=== PATIENT | female | born 1975 | race Caucasian/White ===

== ENCOUNTER 2020-04-28 12:56 | Emergency (ER) | payer OTHER ==
[2020-04-28 13:27] LABS: BILIRUBIN,URINE NEGATIVE (NEGATIVE); CLARITY,URINE CLEAR (CLEAR); GLUCOSE, URINE (UA) NEGATIVE (NEGATIVE); KETONES,URINE (UA) NEGATIVE (NEGATIVE); LEUKOCYTE ESTERASE, URINE NEGATIVE (NEGATIVE); NITRITE,URINE NEGATIVE (NEGATIVE); OCCULT BLOOD,URINE NEGATIVE (NEGATIVE); PROTEIN,URINE NEGATIVE (NEGATIVE); UROBILINOGEN,URINE 0.2 (NORMAL) E.U./dL (NORMAL)
[2020-04-28 13:28] LABS: HCG UR QUAL NEGATIVE
[2020-04-28 13:31] LABS: BASOPHILS % (AUTO) 0.5 %; EOSINOPHILS # (AUTO) 0.1 10^3/uL (0.0-0.7); EOSINOPHILS % (AUTO) 1.4 %; HGB - HEMOGLOBIN 14.3 g/dL (12.0-16.0); LYMPHOCYTES # (AUTO) 0.6 10^3/uL (1.5-3.5); LYMPHOCYTES % (AUTO) 10.7 %; MEAN CORPUSCULAR HEMOGLOBIN 30.6 pg (27.0-31.0); MEAN CORPUSCULAR HGB CONC 34.5 g/dL (32.0-36.0); MEAN CORPUSCULAR VOLUME 88.5 fL (81.0-99.0); MEAN PLATELET VOLUME 9.3 fL (7.9-10.8); MONOCYTES # (AUTO) 0.5 10^3/uL (0.0-1.0); MONOCYTES % (AUTO) 8.5 %; NEUTROPHILS # (AUTO) 4.5 10^3/uL (1.5-6.6); NEUTROPHILS % (AUTO) 78.6 %; PLT - PLATELET COUNT 224 10^3/uL (130-450); RED BLOOD COUNT 4.68 10^6/uL (4.20-5.40); RED CELL DISTRIBUTION WIDTH 12.6 % (12.0-15.0); WHITE BLOOD COUNT 5.8 x10^3/uL (4.8-10.8)
--- NOTE | 2020-04-28 13:33 | ED Physician Documentation ---
PD HPI ABD PAIN - Stated complaint Stated Complaint: ABD PX - Chief complaint Chief Complaint: Abd Pain - History obtained from History obtained from: Patient - History of Present Illness Timing - onset: How many months ago (2 1/2 months of intermittent left upper to mid upper abd cramping pain. More consistent the past week and has had increased pain and now fever the past couple days. Loose stools. No melena.) Timing - details: Gradual onset, Still present (worse the past couple days), Waxing and waning Quality: Cramping, Aching, Pain Location: Epigastric, LUQ Radiation: Lower back Improved by: Laying still. No: Eating, BM Worsened by: Moving, Palpation. No: Eating, Breathing Associated symptoms: Nausea. No: Fever, Vomiting, Diarrhea, Constipation, Melena, Dysuria Similar symptoms before: Has not had sx before Review of Systems Constitutional: reports: Fever (yesterday) Nose: denies: Rhinorrhea / runny nose, Congestion Throat: denies: Sore throat Respiratory: denies: Cough GI: reports: Abdominal Pain, Nausea. denies: Abdominal Swelling, Vomiting, Constipation, Diarrhea, Bloody / black stool : denies: Dysuria, Frequency Skin: denies: Rash, Lesions Neurologic: denies: Generalized weakness, Focal weakness PD PAST MEDICAL HISTORY - Past Medical History Cardiovascular: None Respiratory: None Neuro: None Endocrine/Autoimmune: None GI: None - Present Medications Home Medications: Ambulatory Orders Medication Instructions Recorded Confirmed Cephalexin [Keflex] 500 mg PO TID #21 capsule 04/28/20 Hydrocodone/Acetaminophen [Wilson 1 each PO Q6H PRN #15 tablet 04/28/20 5-325 Tablet] Naproxen 375 mg PO TID #30 tablet 04/28/20 metroNIDAZOLE [Flagyl] 500 mg PO BID #14 tablet 04/28/20 - Allergies Allergies/Adverse Reactions: Allergies Allergy/AdvReac Type Severity Reaction Status Date / Time Sulfa (Sulfonamide AdvReac Rash Verified 04/28/20 13:05 Antibiotics) - Living Situation Living Situation: reports: With spouse/s.o. Living Arrangement: reports: At home - Social History Does the pt smoke?: No Does the pt drink ETOH?: No Does the pt have substance abuse?: No PD ED PE NORMAL - Vitals Vital signs reviewed: Yes - General General: Alert and oriented X 3, Well developed/nourished, Other (appears uncomfortable due to abd pain. ) - Neck Neck: Supple, no meningeal sign, No adenopathy - Cardiac Cardiac: RRR, No murmur - Respiratory Respiratory: Clear bilaterally - Abdomen Abdomen: Normal bowel sounds, Soft, Non distended, No organomegaly, Other (tender with some local guarding and percussion tender but no rebound in LUQ and mid upper abd but not epigastric per se. ) - Back Back: No CVA TTP - Derm Derm: Normal color, Warm and dry - Neuro Neuro: Alert and oriented X 3, No motor deficit, Normal speech Results - Vitals Vitals: Vital Signs - 24 hr 04/28/20 04/28/20 12:59 15:57 Temperature 36.7 C Heart Rate 77 68 Respiratory 17 16 Rate Blood Pressure 142/85 H 123/82 H O2 Saturation 100 98 Oxygen O2 Source Room air - Labs Labs: Laboratory Tests 04/28/20 04/28/20 04/28/20 13:14 13:28 13:28 WBC 5.8 RBC 4.68 Hgb 14.3 Hct 41.4 MCV 88.5 MCH 30.6 MCHC 34.5 RDW 12.6 Plt Count 224 MPV 9.3 Neut # (Auto) 4.5 Lymph # (Auto) 0.6 L Pope # (Auto) 0.5 Eos # (Auto) 0.1 Baso # (Auto) 0.0 Absolute Nucleated RBC 0.00 Nucleated RBC % 0.0 Sodium 134 L Potassium 3.7 Chloride 98 L Carbon Dioxide 26 Anion Gap 10.0 BUN 5 L Creatinine 0.6 Estimated GFR (MDRD) 108 Glucose 88 Calcium 9.1 Total Bilirubin 0.6 AST 19 ALT 19 Alkaline Phosphatase 38 L Total Protein 7.5 Albumin 4.4 Globulin 3.1 Albumin/Globulin Ratio 1.4 Lipase 32 Urine Color YELLOW Urine Clarity CLEAR Urine pH 7.0 Ur Specific [place] <=1.005 Urine Protein NEGATIVE Urine Glucose (UA) NEGATIVE Urine Ketones NEGATIVE Urine Occult Blood NEGATIVE Urine Nitrite NEGATIVE Urine Bilirubin NEGATIVE Urine Urobilinogen 0.2 (NORMAL) Ur Leukocyte Esterase NEGATIVE Ur Microscopic Review NOT INDICATED Urine Culture Comments NOT INDICATED Urine HCG, Qual NEGATIVE - Rads (name of study) abd CT Radiology: Prelim report reviewed (segment of transverse colitis. No abscess nor perforation. ), See rad report PD MEDICAL DECISION MAKING - ED course Complexity details: reviewed results, considered differential (segment of colitis transverse colon. Presume infectious given worse pain and fever. ), d/w patient Departure - Departure Disposition: 01 Home, Self Care Clinical Impression: Acute colitis Condition: Stable Record reviewed to determine appropriate education?: Yes Instructions: ED Diverticulitis Follow-Up: Shy Yang R.T. (Yonas), Manuela (R) [Primary Care Provider] - Prescriptions: metroNIDAZOLE [Flagyl] 500 mg PO BID #14 tablet Cephalexin [Keflex] 500 mg PO TID #21 capsule Naproxen 375 mg PO TID #30 tablet Hydrocodone/Acetaminophen [Wilson 5-325 Tablet] 1 each PO Q6H PRN #15 tablet PRN Reason: Pain Comments: Stay well-hydrated. Good fiber diet. Use anti-inflammatory naproxen twice daily for the next 7 to 10 days. Add antibiotics cephalexin and metronidazole as directed for the infectious component. Add probiotics to help minimize the other intestinal side effects of the antibiotics. Add Tylenol or hydrocodone if needed for pain. Add a mild stool softener if you get slightly constipated. Follow-up with your primary care if not improving well over the next several days and resolved within a week. Return if worsening. Your CT scan showed a segment of colitis in the transverse colon. They did not see a diverticulitis per se but most of the time this would start at a diverticula and would get treated similarly to that. Discharge Date/Time: 04/28/20 16:15
[2020-04-28 13:45] LABS: ALBUMIN 4.4 g/dL (3.2-5.5); ALBUMIN/GLOBULIN RATIO 1.4 (1.0-2.2); BILIRUBIN,TOTAL 0.6 mg/dL (0.2-1.0); CALCIUM 9.1 mg/dL (8.5-10.3); CREATININE 0.6 mg/dL (0.4-1.0); TOTAL PROTEIN 7.5 g/dL (6.7-8.2)
[2020-04-28] MEDS ORDERED: HYDROmorphone 1 MG/ML CARPUJECT IVP STA (14:03)
[2020-04-28] MEDS ORDERED: ONDANSETRON 4 MG/2 ML VIAL IVP STA (14:03)
[2020-04-28] MEDS ORDERED: KETOROLAC 30 MG/ML VIAL IVP STA (14:03)
[2020-04-28] MEDS ORDERED: SODIUM CHLORIDE 0.9% 1,000 ML IV STA (14:03)
[2020-04-28] MEDS ORDERED: IOVERSOL 320 100 ML VIAL IVP ONE ×2 (14:13→14:34)
--- NOTE | 2020-04-28 14:57 | CT Report ---
PROCEDURE: Abdomen/Pelvis W INDICATIONS: upper/left abd pain, worsening CONTRAST: IV CONTRAST: Optiray 320 ml: 100 PO CONTRAST: *NO PO CONTRAST TECHNIQUE: After the administration of oral and intravenous contrast, 5 mm thick sections acquired from the diap hragms to the symphysis. 5 mm thick coronal and sagittal reformats were acquired. For radiation dos e reduction, the following was used: automated exposure control, adjustment of mA and/or kV accordin g to patient size. COMPARISON: None. FINDINGS: Image quality: Excellent. ABDOMEN: Lung bases: Lung bases are clear. Heart size is normal. Solid organs: Evaluation of the liver demonstrates no focal hepatic lesions. Gallbladder appears wit hin normal limits without calcified gallstones. Biliary system is non dilated. Pancreas enhances no rmally without peripancreatic fat stranding or fluid collections. No adrenal nodules. The spleen is normal in size. Kidneys demonstrate no hydronephrosis. Peritoneum and bowel: There is mild gastric wall thickening in the antrum. Small bowel loops demonst rate normal wall thickness and caliber. The appendix is normal in appearance. There is mild segmenta l wall thickening of the distal transverse colon at the splenic flexure. Colonic diverticulosis is de monstrated without acute diverticulitis. No free fluid or air. Nodes and vessels: No retroperitoneal or mesenteric adenopathy by size criteria. Aorta and inferior vena cava are normal in size. Miscellaneous: No ventral hernias. PELVIS: Genitourinary: Bladder wall thickness is normal. The uterus and ovaries are within normal size limit s. There are 2 small peripherally enhancing cyst in the right ovary suggestive of corpus luteal cysts . Miscellaneous: No inguinal hernias or adenopathy. Bones: No suspicious bony lesions. No vertebral body compression fractures. IMPRESSION: 1. Mild segmental wall thickening in the distal transverse colon at the splenic flexure suggestive of a mild colitis. 2. Mild concentric gastric wall thickening at the antrum may reflect a mild gastritis. Reviewed by: Ernie Granger MD on 04/28/2020 2:56 PM PDT Approved by: Ernie Granger MD on 04/28/2020 2:56 PM PDT Station ID: [id number]
[2020-04-28] MEDS ORDERED: metroNIDAZOLE 250 MG TABLET PO STA (15:32)
[2020-04-28] MEDS ORDERED: cefTRIAXone 1 GM VIAL IVP STA (15:32)
[2020-04-28 15:57] VITALS: BP 123/82
== END 2020-04-28 16:15 | disposition home or self-care (01) ==
LOC: ED 12:56
DX: K52.89 Other specified noninfective gastroenteritis and colitis (principal)
CPT/HCPCS: 36415; 74177; 80053; 81003; 81025; 83690; 85025; 96361; 96374; 96375; 99284; A9270; J1170; Q9967; 81001; 87086

== ENCOUNTER 2020-08-25 15:27 | Outpatient (CLI) | payer OTHER | END 2020-08-25 15:28 | disposition home or self-care (01) | LOC: COV 15:27 | PROVIDERS: ATTEND Family Medicine | DX: Z20.828 Contact with and (suspected) exposure to other viral communicable diseases (principal) ==

== ENCOUNTER 2021-01-15 18:08 | Emergency (ER) | payer OTHER ==
--- OUTSIDE RECORDS SUMMARY | 2021-01-15 18:21 | EXTERNAL MEDICAL SUMMARY RPT | Continuity of Care Document ---
:1975 Demographics Phone Unavailable Preferred Language Unknown Marital Status Unknown Orthodox Affiliation Unknown Race Unknown Ethnic Group Unknown Author Organization [place] Address [address] [id number] Phone Social History date description facility [phone]
[2021-01-15] MEDS ORDERED: BUFFERED LIDOCAINE 10 ML SYRINGE SUBQ STA (18:34)
--- NOTE | 2021-01-15 18:34 | ED Physician Documentation ---
PD HPI LOWER EXT INJURY - Stated complaint Stated Complaint: LT TONAIL INJURY - Chief complaint Chief Complaint: Ext Problem - History obtained from History obtained from: Patient (45-year-old woman who is up-to-date on tetanus accidentally kicked a heavy rubber mat and now has a almost complete avulsion of the left great toe. This happened at home today.) Review of Systems Constitutional: reports: Reviewed and negative Eyes: reports: Reviewed and negative Ears: reports: Reviewed and negative Nose: reports: Reviewed and negative Throat: reports: Reviewed and negative Cardiac: reports: Reviewed and negative Respiratory: reports: Reviewed and negative PD PAST MEDICAL HISTORY - Past Medical History Cardiovascular: None Respiratory: None Neuro: None Endocrine/Autoimmune: None GI: None - Present Medications Home Medications: Ambulatory Orders Medication Instructions Recorded Confirmed No Known Home Medications 01/15/21 01/15/21 - Allergies Allergies/Adverse Reactions: Allergies Allergy/AdvReac Type Severity Reaction Status Date / Time Sulfa (Sulfonamide AdvReac Rash Verified 01/15/21 18:29 Antibiotics) - Social History Does the pt smoke?: No Does the pt drink ETOH?: No Does the pt have substance abuse?: No PD ED PE NORMAL - Vitals Vital signs reviewed: Yes - General General: Alert and oriented X 3, No acute distress - Extremities Extremities: Other (The left great toe is almost completely avulsed and is basically just hanging by of a very edge of the proximal nailbed.) - Neuro Neuro: Alert and oriented X 3, Normal speech Results - Vitals Vitals: Vital Signs - 24 hr 01/15/21 18:24 Temperature 36.9 C Heart Rate 74 Respiratory 15 Rate Blood Pressure 136/87 H O2 Saturation 99 Oxygen O2 Source Room air Procedures - General procedure General procedure: After a digital block with buffered lidocaine of the left great toe the almost completely avulsed toenail was removed painlessly and dressed with Xeroform and tube gauze. Departure - Departure Disposition: 01 Home, Self Care Clinical Impression: Avulsion of toenail of left foot Condition: Good Record reviewed to determine appropriate education?: Yes Instructions: ED Avulsion Nail Complete
[2021-01-15 19:14] VITALS: BP 132/82
== END 2021-01-15 19:14 | disposition home or self-care (01) ==
LOC: ED 18:08
DX: S91.202A Unspecified open wound of left great toe with damage to nail, initial encounter (principal); W22.8XXA Striking against or struck by other objects, initial encounter; Y92.009 Unspecified place in unspecified non-institutional (private) residence as the place of occurrence of the external cause
CPT/HCPCS: 11730; 99281; 99282

== ENCOUNTER 2021-04-25 07:06 | Outpatient (CLI) | payer OTHER ==
--- NOTE | 2021-04-25 12:11 | Ultrasound Report ---
PROCEDURE: Abdomen Complete INDICATIONS: GENERALIZED ABD PAIN TECHNIQUE: Real-time scanning was performed of the abdominal and retroperitoneal organs, with image documentatio n. COMPARISON: None. FINDINGS: Liver: Liver is normal in size and homogeneous in echotexture. Liver demonstrates diffusely increas ed hepatic echotexture without intrahepatic mass lesions. Gallbladder: Gallbladder wall is normal in thickness. No pericholecystic fluid. Negative sonographic Chambers's. There is a 4 mm gallbladder wall polyp. No gallstones seen. Biliary ducts: Intrahepatic bile ducts are non-dilated. Extrahepatic bile duct caliber measures 4 m m. Normal is 6-7 mm or less in diameter, or 10 mm or less post-cholecystectomy. Pancreas: Visualized portions of the pancreas are sonographically normal. Spleen: Spleen is normal in size and homogeneous in echotexture. Kidneys: Kidneys are normal in size and echotexture. Right kidney measures 11.1 cm long; left kidne y measures 10.4 cm long. No hydronephrosis or nephrolithiasis. No solid masses. Aorta: Visualized aorta is normal in caliber at less than 3 cm. Iliacs: Proximal common iliac arteries are normal in caliber at less than 2.5 cm. IVC: Intrahepatic inferior vena cava is patent. Miscellaneous: No free abdominal fluid. IMPRESSION: 1. Diffuse hepatic steatosis. 2. Incidental 4 mm gallbladder wall polyp. Given its small size, no further imaging is required. 3. No acute sonographic abnormalities identified. Reviewed by: Tello Green MD on 04/25/2021 12:10 PM PDT Approved by: Tello Green MD on 04/25/2021 12:10 PM PDT Station ID: [id number]
[2021-05-01 09:36] LABS: ANA PATTERN Nuclear, Homogeneous; ANA SCREEN POSITIVE (NEGATIVE); ANA TITER 1:40 titer
== END 2021-04-25 07:07 | disposition home or self-care (01) ==
LOC: DI 07:06
PROVIDERS: ATTEND Internal Medicine Gastroenterology
DX: K76.0 Fatty (change of) liver, not elsewhere classified (principal); K82.4 Cholesterolosis of gallbladder; R10.84 Generalized abdominal pain
CPT/HCPCS: 36415; 85651; 86038; 86140

== ENCOUNTER 2023-03-27 13:32 | Emergency (ER) | payer OTHER ==
--- NOTE | 2023-03-27 14:07 | ED Physician Documentation ---
History of Present Illness - Stated complaint Stated Complaint: RASH ON FACE - Chief complaint Chief Complaint: General - History obtained from History obtained from: Patient - History of Present Illness Timing: Today Pain level max: 0 Pain level now: 0 - Additonal information Additional information: Patient is a 48-year-old female who presents to the emergency department complaining of a rash on the face and upper torso that started today. She received several immunizations yesterday including typhoid, Tdap, rabies and polio. She has an upcoming trip to [facility] No fevers. No chills. No cough or congestion. She states feels similar to prior allergic reactions. She states she has itching on her arms as well. Does not have any known allergies to these injections. Nothing makes it better or worse. Denies any possibility of Review of Systems Constitutional: denies: Fever, Chills Throat: denies: Sore throat Respiratory: denies: Dyspnea, Cough, Wheezing : denies: Now EGA Skin: reports: Rash PD PAST MEDICAL HISTORY - Past Medical History Cardiovascular: None Respiratory: None Neuro: None Endocrine/Autoimmune: None GI: None - Past Surgical History Past Surgical History: No - Present Medications Home Medications: Ambulatory Orders Medication Instructions Recorded Confirmed predniSONE [Deltasone] 40 mg PO DAILY #10 tablet 03/27/23 - Allergies Allergies/Adverse Reactions: Allergies Allergy/AdvReac Type Severity Reaction Status Date / Time Sulfa (Sulfonamide AdvReac Rash Verified 03/27/23 13:42 Antibiotics) - Social History Does the pt smoke?: No Smoking Status: Never smoker Does the pt drink ETOH?: No Does the pt have substance abuse?: No PD ED PE NORMAL - Vitals Vital signs reviewed: Yes - General General: Alert and oriented X 3, No acute distress - HEENT HEENT: PERRL, Moist mucous membranes, Pharynx benign, Other (No stridor. No wheezing) - Neck Neck: Supple, no meningeal sign - Cardiac Cardiac: RRR, Strong equal pulses - Respiratory Respiratory: No respiratory distress, Clear bilaterally - Abdomen Abdomen: Soft, Non tender, Non distended - Derm Derm: Warm and dry, Other (Mild urticarial exanthem on the face, upper chest and neck.) - Neuro Neuro: Alert and oriented X 3 - Psych Psych: Normal mood, Normal affect Results - Vitals Vitals: Vital Signs - 24 hr 03/27/23 03/27/23 13:38 14:25 Temperature 35.9 C L 36.7 C Heart Rate 73 66 Respiratory 18 20 Rate Blood Pressure 134/82 H 108/55 L O2 Saturation 100 100 Oxygen O2 Source Room air PD Medical Decision Making - ED course Complexity details: considered differential, d/w patient ED course: 48-year-old female with what appears to be a allergic reaction to likely one of the vaccines that she received yesterday. Unclear which vaccine, possibly typhoid? She states that she has had typhoid Vaccination before. She has never had a rabies vaccination. No evidence of anaphylaxis. No stridor. No wheezing. No respiratory distress. We will place on steroids for home. Patient counseled regarding signs and symptoms for which I believe and urgent re- evaluation would be necessary. Patient with good understanding of and agreement to plan and is comfortable going home at this time This document was made in part using voice recognition software. While efforts are made to proofread this document, sound alike and grammatical errors may occur. Departure - Departure Disposition: 01 Home, Self Care Clinical Impression: Allergic reaction Qualifiers: Encounter type: initial encounter Qualified Code(s): T78.40XA - Allergy, unspecified, initial encounter Condition: Good Instructions: ED Allergic Reaction General Other Follow-Up: REUBEN GUZMÁN ARNP [Primary Care Provider] - Prescriptions: predniSONE [Deltasone] 40 mg PO DAILY #10 tablet Comments: Your prescription was sent to [facility] in [place]. Please use the prednisone as prescribed and talk to your doctor before your next dose of your vaccinations. Discharge Date/Time: 03/27/23 14:26
[2023-03-27] MEDS ORDERED: predniSONE 20 MG TABLET PO STA (14:10)
[2023-03-27 14:31] VITALS: BP 108/55
== END 2023-03-27 14:26 | disposition home or self-care (01) ==
LOC: ED 13:32
DX: T78.40XA Allergy, unspecified, initial encounter (principal); X58.XXXA Exposure to other specified factors, initial encounter
CPT/HCPCS: 99282; 99283; J7512